=== PATIENT | female | born 1995 ===

== ENCOUNTER 2018-05-11 14:17 | Emergency (ER) | payer MEDICAID, OTHER ==
[2018-05-11 14:30] VITALS: BP 106/63; PULSE 97; RESP 17; TEMP 97; O2SAT 100
[2018-05-11 14:31] VITALS: BMI 22.6
--- NOTE | 2018-05-11 15:26 | ED PDOC ---
HPI: Female Pain Time Seen by Provider: 05/11/18 14:33 Chief Complaint (Provider): dysuria History Per: Patient History/Exam Limitations: no limitations Onset/Duration Of Symptoms: Persistent (x1 week) Current Symptoms Are (Timing): Still Present Additional Complaint(s): 22 year old female reports dysuria and lower back pain ongoing for 1 week. Otherwise: (-) fever, (-) nausea, (-) vomiting, (-) abdominal pain, (-) change in bowel movements, or (-) other urinary complaints. PMD: Dr. Yas Trujillo Past Medical History Reviewed: Historical Data, Nursing Documentation, Vital Signs Vital Signs: Last Vital Signs Temp 97 F L 05/11/18 14:25 Pulse 97 H 05/11/18 14:25 Resp 17 05/11/18 14:25 BP 106/63 05/11/18 14:25 Pulse Ox 100 05/11/18 14:25 - Medical History PMH: No Chronic Diseases - Surgical History Surgical History: (x1) - Family History Family History: States: Unknown Family Hx - Home Medications Home Medications: Ambulatory Orders Medication Instructions Recorded Clindamycin [Cleocin] 300 mg PO TID #30 cap 03/25/16 traMADol [Ultram] 50 mg PO Q8 #10 tab 03/25/16 Oxycodone HCl/Acetaminophen 1 tab PO Q6 PRN #10 tab 03/28/16 [Percocet 325 mg-5 mg] Naproxen [Naprosyn] 500 mg PO BID PRN #15 tablet 03/30/16 oxyCODONE/Acetaminophen [Percocet 1 tab PO Q6H PRN #15 tab 03/30/16 5/325 mg Tab] Nitrofurantoin Macrocrystals 100 mg PO BID #14 cap 05/11/18 [Macrobid] Phenazopyridine HCl [Pyridium] 100 mg PO TID #6 tablet 05/11/18 - Allergies Allergies/Adverse Reactions: Allergies Allergy/AdvReac Type Severity Reaction Status Date / Time No Known Allergies Allergy Verified 05/11/18 14:30 Review of Systems ROS Statement: Except As Marked, All Systems Reviewed And Found Negative Constitutional: Negative for: Fever Gastrointestinal: Negative for: Nausea, Vomiting, Abdominal Pain, Diarrhea, Constipation Genitourinary Female: Positive for: Dysuria. Negative for: Frequency, Incontinence, Hematuria Musculoskeletal: Positive for: Back Pain (lower) Physical Exam - Reviewed Nursing Documentation Reviewed: Yes Vital Signs Reviewed: Yes - Physical Exam Comments: GENERAL APPEARANCE: Patient is awake, alert, oriented x 3, in no acute distress. SKIN: Warm, dry; (-) cyanosis. EYES: (-) conjunctival pallor. ENMT: Mucous membranes are moist. Airway patent: (-) stridor. Pharynx: (-) swelling, (-) erythema. NECK: (-) tenderness, (-) stiffness, (-) lymphadenopathy. CHEST AND RESPIRATORY: (-) wheezing; (-) rales, (-) rhonchi, (-) rub; breath sounds equal bilaterally. HEART AND CARDIOVASCULAR: (-) irregularity; (-) murmur, (-) gallop ABDOMEN AND GI: Soft; (-) tenderness. BACK: (-) midline or CVA tenderness. EXTREMITIES: (-) deformity, (-) edema. NEURO AND PSYCH: Mental status as above; (-) focal findings. - ECG O2 Sat by Pulse Oximetry: 100 (RA) Pulse Ox Interpretation: Normal Medical Decision Making Medical Decision Making: Time: 1436 Initial Plan: * Urine * Urine dipstick Time: 1521 --Urine reviwed: hcg (-), U el (+) small leuks. --Macrobid 10mg and Pyridium 100mg additionally ordered. Advised to follow up with primary care physician in 1-2 days without fail. Advised to take medication as prescribed. Return to the emergency room at any time for any new or worsening symptoms. Patient states she fully agrees with and understands discharge instructions. States that she agrees with the plan and disposition. Verbalized and repeated discharge instructions and plan. I have given the patient opportunity to ask any additional questions. Scribe Attestation: Documented by Christina Oneil, acting as a scribe for Rosemarie Meléndez PA-C. Provider Scribe Attestation: All medical record entries made by the Scribe were at my direction and personally dictated by me. I have reviewed the chart and agree that the record accurately reflects my personal performance of the history, physical exam, medical decision making, and the department course for this patient. I have also personally directed, reviewed, and agree with the discharge instructions and disposition. Disposition - Clinical Impression Clinical Impression: UTI (urinary tract infection) - Patient ED Disposition Is Patient to be Admitted: No Counseled Patient/Family Regarding: Studies Performed, Diagnosis, Need For Followup, Rx Given - Disposition Disposition: Routine/Home Disposition Time: 15:20 Condition: STABLE Additional Instructions: Thank you for letting us take care of you today. You were treated for UTI. The emergency medical care you received today was directed at your acute symptoms. If you were prescribed any medication, please fill it and take as directed. It may take several days for your symptoms to resolve. Return to the Emergency Department if your symptoms worsen, do not improve, or if you have any other problems. Please contact your doctor in 2 days for re-evaluation and follow up. Bring any paperwork you were given at discharge with you along with any medications you are taking to your follow up visit. Our treatment cannot replace ongoing medical care by a primary care provider (PCP) outside of the emergency department. Thank you for allowing the [facility] team to be part of your care today. 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
== END 2018-05-11 15:51 | disposition home or self-care (01) ==
LOC: H.ER 14:17
DX: N39.0 Urinary tract infection, site not specified (principal)

== ENCOUNTER 2018-09-27 15:52 | Emergency (ER) | payer MEDICAID ==
[2018-09-27 15:52] VITALS: BMI 22.6
[2018-09-27] MEDS ORDERED: Sodium Chloride 0.9% 1,000 ML IV STA (16:26)
--- NOTE | 2018-09-27 16:30 | ED PDOC ---
HPI: Female Pain Time Seen by Provider: 09/27/18 16:20 Chief Complaint (Nursing): Back Pain Chief Complaint (Provider): dysuria History Per: Patient History/Exam Limitations: no limitations Onset/Duration Of Symptoms: Days (1 week) Current Symptoms Are (Timing): Still Present Quality Of Discomfort: Burning, "Pain" Associated Symptoms: Fever, Chills, Back Pain Additional Complaint(s): 23 y/o female presents for evaluation of dysuria x 1 week. Associated left- sided back pain x 3 days, and fever today. Denies vomiting, hematuria, vaginal bleeding/discharge. Last dose Advil taken 14:00 Abnormal Vaginal Bleeding: No Past Medical History Reviewed: Historical Data, Nursing Documentation, Vital Signs Vital Signs: Last Vital Signs Temp 99.0 F 09/27/18 15:55 Pulse 89 09/27/18 15:55 Resp 19 09/27/18 15:55 BP 104/54 L 09/27/18 15:55 Pulse Ox 100 09/27/18 15:55 - Medical History PMH: No Chronic Diseases - Surgical History Surgical History: (x1) - Family History Family History: States: Unknown Family Hx - Home Medications Home Medications: Ambulatory Orders Medication Instructions Recorded Clindamycin [Cleocin] 300 mg PO TID #30 cap 03/25/16 traMADol [Ultram] 50 mg PO Q8 #10 tab 03/25/16 Oxycodone HCl/Acetaminophen 1 tab PO Q6 PRN #10 tab 03/28/16 [Percocet 325 mg-5 mg] Naproxen [Naprosyn] 500 mg PO BID PRN #15 tablet 03/30/16 oxyCODONE/Acetaminophen [Percocet 1 tab PO Q6H PRN #15 tab 03/30/16 5/325 mg Tab] Nitrofurantoin Macrocrystals 100 mg PO BID #14 cap 05/11/18 [Macrobid] Phenazopyridine HCl [Pyridium] 100 mg PO TID #6 tablet 05/11/18 Cefpodoxime [Vantin] 200 mg PO Q12 #20 tab 09/27/18 Naproxen [Naprosyn] 500 mg PO Q12 PRN #14 tablet 09/27/18 - Allergies Allergies/Adverse Reactions: Allergies Allergy/AdvReac Type Severity Reaction Status Date / Time No Known Allergies Allergy Verified 05/11/18 14:30 Review of Systems Constitutional: Positive for: Fever Genitourinary Female: Positive for: Dysuria, Frequency Musculoskeletal: Positive for: Back Pain Physical Exam - Reviewed Nursing Documentation Reviewed: Yes Vital Signs Reviewed: Yes - Physical Exam Appears: Positive for: Well, Non-toxic, No Acute Distress Head Exam: Positive for: ATRAUMATIC, NORMAL INSPECTION, NORMOCEPHALIC Skin: Positive for: Normal Color Eye Exam: Positive for: Normal appearance ENT: Positive for: Normal ENT Inspection Cardiovascular/Chest: Positive for: Regular Rate, Rhythm Respiratory: Positive for: Normal Breath Sounds Gastrointestinal/Abdominal: Positive for: Bowel Sounds, Soft, Tenderness (left flank, suprapubic) Back: Positive for: L CVA Tenderness Extremity: Positive for: Normal ROM Neurologic/Psych: Positive for: Alert, Oriented (x3) - Laboratory Results Result Diagrams: 09/27/18 17:00 09/27/18 17:00 - ECG O2 Sat by Pulse Oximetry: 100 - Progress ED Course And Treament: -cbc -cmp -lactic acid -upreg -udip -urinalysis -urine c&s -blood cx -IV NS bolus -IV toradol -IV rocephin Patient educated on findings, discharged with rx Cefpodoxime, Naproxen Encouraged increase fluid intake Follow up PMD within 2-3 days Return precautions given Disposition - Clinical Impression Clinical Impression: Pyelonephritis - Patient ED Disposition Is Patient to be Admitted: No Counseled Patient/Family Regarding: Studies Performed, Diagnosis, Need For Followup, Rx Given - Disposition Disposition: Routine/Home Disposition Time: 18:39 Condition: IMPROVED Prescriptions: Cefpodoxime [Vantin] 200 mg PO Q12 #20 tab Naproxen [Naprosyn] 500 mg PO Q12 PRN #14 tablet PRN Reason: Pain, Moderate (4-7) Instructions: Kidney Infection Forms: [employer] [facility] (Swedish)
[2018-09-27] MEDS ORDERED: cefTRIAXone (Rocephin) 1 gm Inj ONE (16:41)
[2018-09-27 16:42] LABS: SQUAMOUS EPITHIAL 3 /hpf (0-5); URINE BILIRUBIN NEGATIVE (NEGATIVE); URINE BLOOD NEGATIVE (NEGATIVE); URINE CLARITY CLOUDY (Clear); URINE COLOR YELLOW (YELLOW); URINE GLUCOSE (UA) NEG (NEGATIVE); URINE LEUKOCYTE ESTERASE LARGE Leu/uL (Negative); URINE PROTEIN NEGATIVE (NEGATIVE); URINE UROBILINOGEN 0.2-1.0 mg/dL (0.2-1.0)
[2018-09-27 16:49] LABS: URINE BACTERIA MANY (<OCC)
[2018-09-27 17:13] LABS: BASO % 0.2 % (0.0-2.0); EOS % 0.1 % (0.0-4.0); HEMOGLOBIN 11.8 g/dL (12.0-16.0); LYMPH # 0.6 K/uL (1.0-4.3); LYMPH % 4.9 % (20.0-40.0); MEAN CORPUSCULAR HEMOGLOBIN 24.3 pg (27.0-31.0); MEAN PLATELET VOLUME 10.5 fl (7.2-11.7); MONO # 0.9 K/uL (0.0-0.8); MONO % 6.8 % (0.0-10.0); NEUT # 11.7 K/uL (1.8-7.0); PLATELET COUNT 167 K/uL (130-400); RBC 4.86 Mil/uL (3.80-5.20); RED CELL DISTRIBUTION WIDTH 14.1 % (11.5-14.5); WHITE BLOOD COUNT 13.3 K/uL (4.8-10.8)
[2018-09-27 17:18] LABS: ALB/GLOB RATIO 1.3 (1.0-2.1); ALBUMIN 4.4 g/dL (3.5-5.0); ALT/SGPT 35 U/L (9-52); AST/SGOT 26 U/L (14-36); BLOOD UREA NITROGEN 6 mg/dl (7-17); CALCIUM 9.8 mg/dL (8.4-10.2); GFR NON-AFRICAN AMERICAN > 60
[2018-09-27 17:39] LABS: LYMPHOCYTE 3 % (20-50); MONOCYTE 4 % (0-10); NEUTROPHIL 93 % (42-75); TOTAL CELLS COUNTED 100
[2018-09-27 17:40] LABS: PLATELET ESTIMATE NORMAL (NORMAL)
[2018-09-27 17:41] LABS: MICROCYTOSIS SLIGHT; OVALOCYTES SLIGHT; POIKILOCYTOSIS SLIGHT; TEARDROP CELLS SLIGHT
[2018-09-27 19:21] VITALS: BP 110/60; PULSE 99; RESP 18; TEMP 99.5; O2SAT 99
== END 2018-09-27 19:28 | disposition home or self-care (01) ==
LOC: H.ER 15:52
DX: N12 Tubulo-interstitial nephritis, not specified as acute or chronic (principal)
CPT/HCPCS: 80053; 81003; 81025; 83605; 85025; 87040; 87086; 87181; 96365; 96375; 99284; J0696; J1885; J7030